=== PATIENT | male | born 1965 | race Caucasian/White ===

== ENCOUNTER 2024-10-04 10:09 | Emergency (ER) | payer SELFPAY ==
[~2024-10-04] VITALS: Ht 165.1 cm; Wt 77.1 kg
[2024-10-04] MEDS ORDERED: Ketorolac Tromethamine 15 MG/ML VIAL IV ONE (10:30)
[2024-10-04] MEDS ORDERED: SODIUM CHLORIDE 0.9% 1,000 ML IV ONE (10:30)
[2024-10-04 10:42] LABS: HEMATOCRIT 40.5 % (42.0-52.0); MEAN CELL VOLUME 87.5 fl (80.0-94.0); MEAN CORPUSCULAR HGB 29.2 pg (27.0-31.0); MEAN CORPUSCULAR HGB CONC 33.3 g/dl (33.0-37.0); MEAN PLATELET VOLUME 9.6 fl (9.6-12.3); PLATELET COUNT AUTOMATED 153 10*3/uL (130-400); RED BLOOD COUNT 4.63 10*6/uL (4.50-5.90); RED CELL DISTRI WIDTH 12.7 % (0-14.5); WHITE BLOOD COUNT 12.9 10*3/uL (4.8-10.8)
[2024-10-04 10:49] LABS: MANUAL DIFF REFLEX YES
[2024-10-04 11:02] LABS: ATYPICAL LYMPHS 1 % (0-0); BURR CELLS MODERATE; POLYCHROMASIA SLIGHT; TOTAL CELLS COUNTED 100 #CELLS; VACUOLATION OF NEUTROPHILS SLIGHT
[2024-10-04 11:03] LABS: PLATELET SUFFICIENCY NORMAL (NORMAL)
[2024-10-04 11:10] LABS: BUN 16 mg/dl (9-23); CHLORIDE 99 mmol/L (98-107); POTASSIUM 3.1 mmol/L (3.4-5.1)
[2024-10-04] MEDS ORDERED: AZITHROMYCIN 250 ML IV ONE (11:25)
[2024-10-04] MEDS ORDERED: POTASSIUM CHLORIDE 20 MEQ TAB PO ONE (11:25)
[2024-10-04] MEDS ORDERED: AVPAK AZITHROM250 M1 PO (11:32)
== END 2024-10-04 12:37 | disposition home or self-care (01) ==
LOC: ED 10:09
PROVIDERS: Emergency Medicine
DX: J40 Bronchitis, not specified as acute or chronic (principal); Z20.822 Contact with and (suspected) exposure to COVID-19; E87.6 Hypokalemia